=== PATIENT | male | born 1950 | race Caucasian/White ===

== ENCOUNTER 2018-10-11 14:35 | Inpatient (IN) | payer MEDICARE, OTHER ==
[~2018-10-11] VITALS: Ht 180.3 cm; Wt 62.0 kg
[~2018-10-11 14:35] MED LIST: PARO10TA85 PO
[2018-10-11] MEDS ORDERED: acetaminophen 325mg tablet PO PRN ×2 (15:40)
[2018-10-11] MEDS ORDERED: magnesium hydroxide 30ml (MOM) UD suspension PO PRN (15:40)
[2018-10-11] MEDS ORDERED: mag hydrox/Alum hydrox/simeth 30ml oral suspension PO PRN (15:40)
[2018-10-11] MEDS ORDERED: tuberculin, purif. prot. deriv. 5 units/0.1ml ID ONE (15:40)
[2018-10-11] MEDS ORDERED: loperamide 2mg capsule PO PRN (15:40)
[2018-10-11 17:44] VITALS: BP 106/62
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
[2018-10-11 18:21] VITALS: BP 106/62
[2018-10-11 19:00] VITALS: BP 121/72
[2018-10-11] MEDS: zolpidem 5mg tablet PO PRN (22:48)
[2018-10-12] MEDS: LORazepam 1 MG tablet PO PRN ×2 (01:25→21:00)
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
[2018-10-12 07:45] VITALS: BP 128/77
[2018-10-12] MEDS: PARoxetine 10mg tablet PO SCH (08:18)
[2018-10-12 12:41] LABS: CHOL/HDL RATIO 3.9 (0.00-4.99); CHOLESTEROL 117 MG/DL (0-200); HDL CHOLESTEROL 30 MG/DL (35-60); LDL CHOLESTEROL 73 MG/DL (50-100); TRIGLYCERIDES 94 MG/DL (20-135)
[2018-10-12 12:50] LABS: HEMOGLOBIN A1C 6.1 % (4.5-6.2)
--- NOTE | 2018-10-12 15:10 | NUR ---
Malnutrition consult, patient reports weight loss of 50 lbs since July, weight loss of 50 lbs in three months would need loss of 4 lbs/week. No documented weight history. Previous weight is unknown. Skin is intact. No edema. Mild muscle weakness. Weighs 79% of IBW. First meal patient ate 100%, second meal 67%, and refused his last meal. Can add Ensure Enlive to meals for meal replacement. Per HPI, patient has not been drinking or eating well for a month. Addendum: 10/12/18 at [address] Amended: Links added.
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
[2018-10-12 19:00] VITALS: BP 136/90
[2018-10-12] MEDS: mirtazapine 15mg tablet PO SCH (20:57)
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
[2018-10-13 08:00] VITALS: BP 117/81
[2018-10-13] MEDS: PARoxetine 10mg tablet PO SCH (08:10)
[2018-10-13] MEDS: potassium Cl 20 mEq SR tablet PO SCH (08:10)
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
[2018-10-13 19:00] VITALS: BP 135/94
--- NOTE | 2018-10-13 19:13 | NUR ---
ATTEMPTED SUICIDE Patient was found by staff at 1708 with his head wedged between bars on bottom of bed and top of bed lowered onto neck. Patient was removed from the bed and laying on the floor. Patient was conscious and speaking, skin tone pink. Patient had indentations on both left and right sides of neck and sides of head, no broken skin. Vitals were taken BP 138/86, HR 86, O2 99%, RR 14. In no specific order; Nursing artillery maintenance supervisor, prescribing doctor and hospitalist were informed. O2 stats monitored as prescribed. Head CT scan as well as a CT scan of the cervical spine and soft soft tissues of the neck were ordered. Patient is kept on a line of sight. After scans, patient returned to his room, to his bed with a sitter.
[2018-10-13] MEDS: mirtazapine 15mg tablet PO SCH (20:50)
[2018-10-13] MEDS: zolpidem 5mg tablet PO PRN (20:51)
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
[2018-10-14 07:00] VITALS: BP 157/84
[2018-10-14] MEDS: PARoxetine 10mg tablet PO SCH (07:30)
[2018-10-14] MEDS: potassium Cl 20 mEq SR tablet PO SCH (07:30)
[2018-10-14] MEDS: ibuprofen 200mg tablet PO PRN (11:56)
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
[2018-10-14 19:44] VITALS: BP 138/90
[2018-10-14] MEDS: zolpidem 5mg tablet PO PRN (20:21)
[2018-10-14] MEDS: LORazepam 1 MG tablet PO PRN (20:21)
[2018-10-14] MEDS: mirtazapine 15mg tablet PO SCH (20:21)
--- NOTE | 2018-10-15 00:58 | NUR ---
While the patient was laying in bed, he appeared to be talking to someone that was not in the room. The patient stated "I understand, if they don't allow me to kill myself then I will kill everyone here". This publicity writer asked who the patient was talking to, the patient ignored this question and continued by saying "Yes I understand I will kill everyone"
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
[2018-10-15 07:28] VITALS: BP 120/83
[2018-10-15 07:50] LABS: ALBUMIN 3.7 G/DL (3.4-5.0); ANION GAP 7 (8-16); BLOOD UREA NITROGEN 9 MG/DL (7-18); BUN/CREATININE RATIO 13.6 (5.4-32.0); CALCIUM 9.4 MG/DL (8.5-10.1); CHLORIDE 104 MMOL/L (99-107); CREATININE 0.66 MG/DL (0.60-1.10); GLUCOSE 102 MG/DL (70-104); SODIUM 141 MMOL/L (135-145); TOTAL CARBON DIOXIDE 29.8 MMOL/L (24-32); eGFR > 90 ML/MIN
[2018-10-15] MEDS: PARoxetine 10mg tablet PO SCH (08:03)
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
--- NOTE | 2018-10-15 15:34 | NUR ---
RN NOTE: Patient went down to MRI scanner. Reportedly, pt became somnolent in MRI and tech could not awaken him, JUDY Diggs went in and pt responded. After they left the MRI scanner, pt took off running. Security had to be called and JUDY and were able to bring patient back to unit. Pt. now scheduled for MRI of spine.
[2018-10-15] MEDS ORDERED: tizanidine 4mg tablet PO PRN (17:20)
[2018-10-15] MEDS: HYDROcodone/acetaminophen 5mg/325mg tablet PO PRN (17:35)
[2018-10-15] MEDS: ibuprofen 200mg tablet PO PRN (17:36)
[2018-10-15 20:20] VITALS: BP 150/87
[2018-10-15] MEDS: mirtazapine 15mg tablet PO SCH ×2 (21:00→22:52)
[2018-10-15] MEDS: LORazepam 1 MG tablet PO PRN (22:52)
[2018-10-15] MEDS: zolpidem 5mg tablet PO PRN (22:53)
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
[2018-10-16] MEDS: PARoxetine 10mg tablet PO SCH (07:57)
[2018-10-16 08:17] VITALS: BP 128/79
[2018-10-16] MEDS ORDERED: venlafaxine XR 37.5mg cap (Q24H) PO ONE (11:40)
--- NOTE | 2018-10-16 11:51 | NUR ---
Initial: Appetite improved since admission, eating 75-100% of regular diet for the past three meals. Dietary is also sending ensure enlive with meals d/t poor intake when he was first admitted. The following labs are pending: MMA and Vitamin B12. Recommend: 1. continue regular diet 2. continue ensure enlive 3. Weekly weights Addendum: 10/16/18 at [address] Amended: Links added.
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
[2018-10-16 20:47] VITALS: BP 135/84
[2018-10-16] MEDS: mirtazapine 15mg tablet PO SCH (22:50)
[2018-10-16] MEDS: zolpidem 5mg tablet PO PRN (22:50)
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
[2018-10-17 08:00] VITALS: BP 126/86
[2018-10-17] MEDS: venlafaxine XR 75mg capsule (Q24H) PO SCH (08:03)
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
[2018-10-17 20:00] VITALS: BP 165/98
[2018-10-17] MEDS: LORazepam 1 MG tablet PO PRN (20:25)
[2018-10-17] MEDS: mirtazapine 15mg tablet PO SCH (20:26)
[2018-10-17] MEDS: HYDROcodone/acetaminophen 5mg/325mg tablet PO PRN (23:33)
[2018-10-17] MEDS: zolpidem 5mg tablet PO PRN (23:33)
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
[2018-10-18 07:59] VITALS: BP 115/75
[2018-10-18] MEDS: venlafaxine XR 75mg capsule (Q24H) PO SCH (08:51)
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
--- NOTE | 2018-10-18 12:20 | NUR ---
1:1 DISCHARGE PLANNING PAIGE contacted Dr. Rivers's office regarding patient and to schedule post hospital appointments. Per office staff, pt has had a sudden onset of sx of mental illness and aggression, which is consistent w/ pt and report. SW agreed to request all discharge information, including CT Scan be provided to the PCP upon discharge. Dr. Rivers fax: [phone] MITALI Holder
[2018-10-18 14:47] VITALS: BP 136/77
--- NOTE | 2018-10-18 19:30 | NUR ---
Nursing Note: Blood draw performed on left upper extremity per new order for CBC and CMP from Dr. Johnson. Pt. tolerated procedure well. Also, obtained a new order for UA with culture if indicated from ANDREA Viera r/t pt. c/o frequency with urination, results WNL. Pt. encouraged to consume plenty of fluids, he complied. Orders to check for occult blood in stool and Doppler Arterial Exam to bilateral lower extremities in place, pt. did not c/o pain or a sensation of cold in bilateral lower extremities this shift. Will continue to monitor.
[2018-10-18 20:00] VITALS: BP 126/85
[2018-10-18 20:00] LABS: BASOPHILS % (AUTO) 0.4 % (0-1); EOSINOPHILS % (AUTO) 0.6 % (0-6); HEMATOCRIT 38.4 % (42.0-52.0); HEMOGLOBIN 13.7 g/dl (14.0-17.9); LYMPHOCYTES # (AUTO) 1.1 X10'3 (1.1-4.8); LYMPHOCYTES % (AUTO) 14.4 % (21-51); MEAN CORPUSCULAR HEMOGLOBIN 34.4 PG (27.0-31.0); MEAN CORPUSCULAR HGB CONC 35.7 g/dL (33.0-36.5); MEAN CORPUSCULAR VOLUME 96.5 FL (78-98); MEAN PLATELET VOLUME 9.5 FL (7.4-10.4); MONOCYTES # (AUTO) 0.6 X10'3 (0-0.9); MONOCYTES % (AUTO) 7.5 % (2-12); NEUTROPHILS # (AUTO) 5.8 X10'3 (1.8-7.7); NEUTROPHILS % (AUTO) 77.1 % (42-75); PLATELET COUNT 219 X10'3 (140-440); RED BLOOD COUNT 3.99 X10'6 (4.70-6.10); RED CELL DISTRIBUTION WIDTH 12.5 % (11.5-14.5); WHITE BLOOD COUNT 7.5 X10'3 (4.5-11.0)
[2018-10-18 20:05] LABS: ALANINE AMINOTRANSFERASE 33 U/L (12-78); ALBUMIN 3.5 G/DL (3.4-5.0); ALBUMIN/GLOBULIN RATIO 1.3 (1.1-1.5); ALKALINE PHOSPHATASE 51 IU/L (46-116); ANION GAP 9 (8-16); ASPARTATE AMINO TRANSFERASE 20 U/L (10-37); BILIRUBIN,TOTAL 0.9 MG/DL (0.1-1.0); BLOOD UREA NITROGEN 15 MG/DL (7-18); BUN/CREATININE RATIO 14.9 (5.4-32.0); CALCIUM 8.7 MG/DL (8.5-10.1); CHLORIDE 95 MMOL/L (99-107); CREATININE 1.01 MG/DL (0.60-1.10); GLUCOSE 97 MG/DL (70-104); POTASSIUM 3.7 MMOL/L (3.5-5.1); SODIUM 130 MMOL/L (135-145); TOTAL CARBON DIOXIDE 25.6 MMOL/L (24-32); TOTAL PROTEIN 6.1 G/DL (6.4-8.2); eGFR 73 ML/MIN
[2018-10-18] MEDS: OLANZAPINE 5 MG TABLET PO SCH (21:05)
[2018-10-18 21:55] LABS: CLARITY,URINE CLEAR (Clear); COLOR,URINE YELLOW (Yellow); GLUCOSE, URINE NEGATIVE (Neg); KETONES,URINE 15 mg/dl (Neg); LEUKOCYTE ESTERASE ,URINE NEGATIVE (Neg); NITRITES, URINE NEGATIVE (Neg); OCCULT BLOOD,URINE NEGATIVE (Neg); PROTEIN,URINE NEGATIVE (Neg); UROBILINOGEN,URINE 0.2 E.U/dL (0.2-1.0)
[2018-10-18 22:03] LABS: UA COLLECTION TYPE NON-SPECIFIED
[2018-10-18] MEDS: zolpidem 5mg tablet PO PRN (22:43)
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
[2018-10-19 08:00] VITALS: BP 133/86
[2018-10-19] MEDS: venlafaxine XR 37.5mg cap (Q24H) PO SCH (08:24)
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
[2018-10-19 19:49] VITALS: BP 118/77
--- NOTE | 2018-10-19 20:00 | NUR ---
Nursing Note: Telephysch Neurology consult will be completed tomorrow, 10/20/18 between 8-11am per Daniel from [facility]. Dr. Low is aware.
--- NOTE | 2018-10-19 20:13 | NUR ---
Nursing Note: Pt. continues to complain of frequency of urge to urinate, however with difficulty starting the flow of urine. Dr. Low notified, and obtained new order for Flomax 0.4 mg at HS.
[2018-10-19] MEDS: tamsulosin 0.4mg capsule PO SCH (21:39)
[2018-10-19] MEDS: OLANZAPINE 5 MG TABLET PO SCH (21:39)
[2018-10-19] MEDS: zolpidem 5mg tablet PO PRN (23:57)
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
--- NOTE | 2018-10-20 05:12 | NUR ---
Nursing Note: Pt. awoke suddenly and got out of bed quickly to urinate, upon doing so he became unsteady on his feet and stumbled catching himself from falling. Tech was able to help pt. ambulate safely to the BR, however pt. remains unsteady on his feet and with s/s of increased confusion. Pt. continues on LOS, will continue to monitor.
[2018-10-20 07:42] VITALS: BP 119/71
[2018-10-20] MEDS: venlafaxine XR 37.5mg cap (Q24H) PO SCH (08:33)
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
[2018-10-20 20:00] VITALS: BP 112/78
[2018-10-20] MEDS ORDERED: quetiapine 100mg tablet PO SCH (21:00)
[2018-10-20] MEDS: tamsulosin 0.4mg capsule PO SCH (21:50)
[2018-10-20] MEDS: zolpidem 5mg tablet PO PRN (21:50)
[2018-10-20 22:19] VITALS: BP 112/78
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
[2018-10-21 07:57] VITALS: BP 145/85
[2018-10-21] MEDS: venlafaxine XR 37.5mg cap (Q24H) PO SCH (08:00)
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
[2018-10-21 16:43] LABS: OCCULT BLOOD STOOL NEGATIVE (Neg)
[2018-10-21 19:33] VITALS: BP 131/88
[2018-10-21] MEDS: tamsulosin 0.4mg capsule PO SCH (21:37)
[2018-10-21] MEDS: quetiapine 100mg tablet PO SCH (21:37)
[2018-10-21] MEDS: zolpidem 5mg tablet PO PRN (21:37)
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
[2018-10-22] MEDS: venlafaxine XR 37.5mg cap (Q24H) PO SCH (07:42)
[2018-10-22 07:45] VITALS: BP 173/103
[2018-10-22 07:58] VITALS: BP 148/87
[2018-10-22] MEDS ORDERED: gadopentetate dimeglumine 10 MMOL/20 ML syringe IV ONE (12:55)
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
[2018-10-22 20:00] VITALS: BP 152/89
[2018-10-22] MEDS: quetiapine 100mg tablet PO SCH (20:22)
[2018-10-22] MEDS: zolpidem 5mg tablet PO PRN (20:22)
[2018-10-22] MEDS: tamsulosin 0.4mg capsule PO SCH (20:22)
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
[2018-10-23 08:00] VITALS: BP 134/87
[2018-10-23] MEDS: venlafaxine XR 37.5mg cap (Q24H) PO SCH (08:16)
--- NOTE | 2018-10-23 12:08 | NUR ---
1:1 DISCHARGE PLANNING SW made TC to pt's , requesting a return contact regarding meeting to discuss pt baseline and discharge. MITALI Holder
--- NOTE | 2018-10-23 13:07 | NUR ---
reassessment: Pt PO 100% meals w/ ONS meeting needs. LBM 10/21. No nutrition concerns at this time. Recommend: 1. continue regular diet 2. continue ensure enlive 3. Weekly weights Addendum: 10/23/18 at [address] Amended: Links added.
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
[2018-10-23 20:40] VITALS: BP 152/79
[2018-10-23] MEDS: quetiapine 100mg tablet PO SCH (21:39)
[2018-10-23] MEDS: tamsulosin 0.4mg capsule PO SCH (21:39)
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
[2018-10-24 07:43] VITALS: BP 122/81
[2018-10-24] MEDS: venlafaxine XR 37.5mg cap (Q24H) PO SCH (07:51)
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
[2018-10-24 20:00] VITALS: BP 134/79
[2018-10-24] MEDS: tamsulosin 0.4mg capsule PO SCH (20:56)
[2018-10-24] MEDS: quetiapine 100mg tablet PO SCH (20:57)
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
[2018-10-25] MEDS: venlafaxine XR 75mg capsule (Q24H) PO SCH (08:00)
--- NOTE | 2018-10-25 08:16 | NUR ---
1:1 DISCHARGE PLANNING SW contacted Flor Cruz at [phone] regarding pt discharge. SW informed pt , Flor, did not want to remain as a support person to pt and plans to leave the home prior to pt discharging. PAIGE informed pt of likely discharge w/in 48-72 hours. Flor agrees to have her personal items removed from the home by this time in order to allow discharge to occur. MITALI Holder
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
[2018-10-25 19:00] VITALS: BP 160/80
[2018-10-25] MEDS: tamsulosin 0.4mg capsule PO SCH (20:52)
[2018-10-25] MEDS: risperiDONE 2mg tablet PO SCH (20:53)
[2018-10-25] MEDS: divalproex sod 250mg ER (24-hour) tablet PO SCH (21:00)
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
[2018-10-26 08:00] VITALS: BP 101/66
[2018-10-26] MEDS: venlafaxine XR 75mg capsule (Q24H) PO SCH (08:10)
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
[2018-10-26 20:34] VITALS: BP 145/93
[2018-10-26] MEDS: tamsulosin 0.4mg capsule PO SCH (20:38)
[2018-10-26] MEDS: risperiDONE 2mg tablet PO SCH (20:38)
[2018-10-26] MEDS: divalproex sod 250mg ER (24-hour) tablet PO SCH (20:46)
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
[2018-10-27] MEDS: HYDROcodone/acetaminophen 5mg/325mg tablet PO PRN (07:33)
[2018-10-27] MEDS: ibuprofen 200mg tablet PO PRN (07:33)
[2018-10-27 08:00] VITALS: BP 104/67
[2018-10-27] MEDS: venlafaxine XR 75mg capsule (Q24H) PO SCH (08:00)
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
[2018-10-27 19:00] VITALS: BP 125/75
[2018-10-27] MEDS: divalproex sod 250mg ER (24-hour) tablet PO SCH (21:00)
[2018-10-27] MEDS: tamsulosin 0.4mg capsule PO SCH (21:00)
[2018-10-27] MEDS: risperiDONE 2mg tablet PO SCH (21:00)
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
[2018-10-28 07:00] VITALS: BP 164/90
[2018-10-28] MEDS: venlafaxine XR 75mg capsule (Q24H) PO SCH (08:43)
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
[2018-10-28] MEDS: risperiDONE 2mg tablet PO SCH (21:00)
[2018-10-28] MEDS: tamsulosin 0.4mg capsule PO SCH (21:00)
[2018-10-28] MEDS: divalproex sod 250mg ER (24-hour) tablet PO SCH (21:00)
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
[2018-10-29 07:52] VITALS: BP 127/88
[2018-10-29 07:53] LABS: ALANINE AMINOTRANSFERASE 31 U/L (12-78); ALBUMIN 3.9 G/DL (3.4-5.0); ALBUMIN/GLOBULIN RATIO 1.3 (1.1-1.5); ALKALINE PHOSPHATASE 62 IU/L (46-116); ANION GAP 8 (8-16); ASPARTATE AMINO TRANSFERASE 17 U/L (10-37); BILIRUBIN,TOTAL 0.7 MG/DL (0.1-1.0); BLOOD UREA NITROGEN 12 MG/DL (7-18); BUN/CREATININE RATIO 20.3 (5.4-32.0); CALCIUM 9.4 MG/DL (8.5-10.1); CHLORIDE 104 MMOL/L (99-107); CREATININE 0.59 MG/DL (0.60-1.10); GLUCOSE 107 MG/DL (70-104); POTASSIUM 3.4 MMOL/L (3.5-5.1); SODIUM 140 MMOL/L (135-145); TOTAL CARBON DIOXIDE 28.1 MMOL/L (24-32); TOTAL PROTEIN 6.9 G/DL (6.4-8.2); eGFR > 90 ML/MIN
[2018-10-29] MEDS: venlafaxine XR 75mg capsule (Q24H) PO SCH (08:00)
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
--- NOTE | 2018-10-29 16:00 | NUR ---
NURSES NOTE: Patient has asked for a postponement on his 5270 and will be rescheduled Thurs at 15:30.
--- NOTE | 2018-10-29 16:55 | NUR ---
NURSES NOTE After 5270 hearing postponement, patient started stating that he wanted to go back into court and present his case. Perseverating back to 5150 documents, where he believes it states he is an alcoholic, this was explained at that time 5150 documents were written, repeatedly. Patient did state that he was "afraid". Explained to patient that he is in need of psychiatric medications to stabilize so that he can make better judgements and decisions.
--- NOTE | 2018-10-29 18:08 | NUR ---
K+ 3.4. Recheck K+ 10/31/18. Dr. Low notified.
[2018-10-29 19:00] VITALS: BP 123/86
[2018-10-29] MEDS: divalproex sod 250mg ER (24-hour) tablet PO SCH (20:26)
[2018-10-29] MEDS: risperiDONE 2mg tablet PO SCH (20:26)
[2018-10-29] MEDS: tamsulosin 0.4mg capsule PO SCH (20:28)
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
[2018-10-30 07:00] VITALS: BP 142/75
[2018-10-30 08:00] VITALS: BP 142/75
[2018-10-30] MEDS: venlafaxine XR 75mg capsule (Q24H) PO SCH (08:53)
--- NOTE | 2018-10-30 10:09 | NUR ---
Reassessment: No changes in PO intake since last RD assessment. [facility] 10/28. No nutrition diagnosis at this time. Will continue to follow. Recommend: 1. continue regular diet 2. continue ensure enlive 3. Weekly weights Addendum: 10/30/18 at [address] Amended: Links added.
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
[2018-10-30 19:55] VITALS: BP 139/84
[2018-10-30] MEDS: tamsulosin 0.4mg capsule PO SCH (21:17)
[2018-10-30] MEDS: risperiDONE 2mg tablet PO SCH (21:18)
[2018-10-30] MEDS: divalproex sod 250mg ER (24-hour) tablet PO SCH (21:18)
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
[2018-10-31 07:32] VITALS: BP 123/79
[2018-10-31] MEDS: venlafaxine XR 75mg capsule (Q24H) PO SCH (08:03)
[2018-10-31] MEDS ORDERED: tamsulosin capsule PO (14:17)
[2018-10-31] MEDS ORDERED: VENL75CA61 PO (14:17)
[2018-10-31] MEDS ORDERED: DIVA250T8 PO (14:17)
[2018-10-31] MEDS ORDERED: RISP2TAB3 PO (14:18)
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
--- NOTE | 2018-10-31 15:18 | NUR ---
Pt refuses MRSA screen Addendum: 10/31/18 at 1519 by Kim Wells RN Amended: Links added.
--- NOTE | 2018-10-31 16:02 | NUR ---
Nursing Discharge Note Pt discharged from [facility] at 1600, escorted by security to the hospital lobby and picked up by [facility] boom truck driver to be taken home. Pt's valuables inventoried by Pancho and returned to pt. Pt has improved since admission and was guarded and quiet upon leaving.Pt in no acute physical or emotional distress. F/U per DC instructions and Pt did not need nicotine replacement.
== END 2018-10-31 16:00 | disposition home or self-care (01) | DRG 885 ==
LOC: ADULT MH 14:35
PROVIDERS: ADMIT Psychiatry & Neurology Psychiatry; ATTEND Psychiatry & Neurology Psychiatry
DX: F33.3 Major depressive disorder, recurrent, severe with psychotic symptoms (principal); R45.851 Suicidal ideations; F12.11 Cannabis abuse, in remission; M24.811 Other specific joint derangements of right shoulder, not elsewhere classified; M75.42 Impingement syndrome of left shoulder; M89.012 Algoneurodystrophy, left shoulder; M48.02 Spinal stenosis, cervical region; E87.6 Hypokalemia; F41.9 Anxiety disorder, unspecified; R41.89 Other symptoms and signs involving cognitive functions and awareness; F17.200 Nicotine dependence, unspecified, uncomplicated; Z79.899 Other long term (current) drug therapy; Z82.49 Family history of ischemic heart disease and other diseases of the circulatory system; X83.8XXA Intentional self-harm by other specified means, initial encounter; Y93.89 Activity, other specified; Y92.89 Other specified places as the place of occurrence of the external cause; Y99.8 Other external cause status
CPT/HCPCS: 36415; 70450; 70490; 70553; 72141; 73030; 80048; 80053; 80061; 81003; 82272; 82607; 83036; 83921; 84132; 84439; 84443; 85025; 87070; 93925; 95816; 97110; 97140; 97161; 99285; A9579